=== PATIENT | male | born 1960 | race Caucasian/White ===

== ENCOUNTER 2024-11-09 05:35 | Emergency (ER) | payer OTHER ==
[~2024-11-09] VITALS: Ht 167.6 cm; Wt 99.8 kg
[2024-11-09 05:43] VITALS: O2SAT 98
[2024-11-09] MEDS: ONDANSETRON HCL 4MG/2ML INJ IV ONE (06:15)
[2024-11-09] MEDS: SODIUM CHLORIDE 0.9% 1,000 ML IV ONE (06:21)
[2024-11-09] MEDS: PANTOPRAZOLE SODIUM 40 MG/VIAL IV ONE (06:28)
[2024-11-09 06:30] LABS: CHLORIDE 105 mEq/L (98-107); POTASSIUM 3.6 mEq/L (3.5-5.1); SODIUM 138 mEq/L (136-145)
[2024-11-09 06:31] LABS: CALCIUM 9.7 mg/dL (8.7-10.4); CARBON DIOXIDE 21 mEq/L (21-32)
[2024-11-09 06:32] LABS: BASOPHILS % 0.2 % (0.0-2.0); EOSINOPHILS % 0.1 % (0.0-5.0); HEMATOCRIT. 43.8 % (42.0-52.0); HEMOGLOBIN. 14.4 g/dL (14.0-18.0); LYMPHOCYTES % 9.1 % (20.0-50.0); MEAN CORPUSCULAR HEMOGLOBIN 28.9 pg (28.0-32.0); MEAN CORPUSCULAR HGB CONC 32.8 g/dL (31.0-37.0); MEAN CORPUSCULAR VOLUME 88.3 fL (80.0-94.0); MONOCYTES % 4.5 % (2.0-8.0); NEUTROPHILS % 86.1 % (40.0-76.0); PLATELET 223 x1000/uL (130-400); RED BLOOD CELL COUNT 4.97 mill/uL (4.7-6.1); RED CELL DISTRIBUTION WIDTH 13.4 % (11.6-14.6); WHITE BLOOD COUNT 12.8 x1000/uL (4.5-11.0)
[2024-11-09 06:36] LABS: CREATININE 1.3 mg/dL (0.6-1.3); GLUCOSE 186 mg/dL (70-105); UREA NITROGEN BLOOD 15 mg/dL (9-23)
[2024-11-09 06:42] LABS: TROPONIN I HIGH SENSITIVITY < 4 ng/L (3.0-53)
[2024-11-09] MEDS: MORPHINE SULFATE 4 MG/ML INJ (FOR IV/IM USE) IV ONE (06:43)
[2024-11-09 06:58] LABS: PROTHROMBIN TIME 10.4 sec (9.6-11.0)
[2024-11-09] MEDS ORDERED: TAMS-54 MT (09:40)
[2024-11-09] MEDS ORDERED: IBUP-1525 MT (09:40)
[2024-11-09] MEDS ORDERED: ACET-2708 MT (09:40)
[2024-11-09 09:54] VITALS: BP 139/98; PULSE 70; RESP 15; TEMP 36.5; O2SAT 96
== END 2024-11-09 09:58 | disposition home or self-care (01) ==
LOC: ER 05:35
DX: N13.2 Hydronephrosis with renal and ureteral calculous obstruction (principal); I10 Essential (primary) hypertension; F17.200 Nicotine dependence, unspecified, uncomplicated; F12.10 Cannabis abuse, uncomplicated; Z98.890 Other specified postprocedural states
CPT/HCPCS: 80048; 83690; 85025; 85610; 84484; 36415; 74176; 93005; 96365; 96375; 99285; J2470; J2270; J7030; Z7610 ×2; J2405